=== PATIENT | male | born 1975 | race Caucasian/White ===

== ENCOUNTER → 2018-12-06 | Outpatient (REF) | payer OTHER | LOC: M LAB REF 11:01 | PROVIDERS: ATTEND Physician Assistant | DX: J02.9 Acute pharyngitis, unspecified (principal) ==

== ENCOUNTER → 2022-06-28 | Outpatient (CLI) | payer OTHER ==
[2022-06-28 12:13] LABS: HEMATOCRIT 45.9 % (42.0-52.0); HEMOGLOBIN 16.4 g/dl (13.5-17.5); MEAN CORPUSCULAR HEMOGLOBIN 33.7 pg (27.0-33.0); MEAN CORPUSCULAR HGB CONC 35.7 g/dl (32.0-36.5); MEAN CORPUSCULAR VOLUME 94.3 fl (80.0-96.0); PLATELET COUNT, AUTOMATED 222 10^3/uL (150-450); RED BLOOD COUNT 4.87 10^6/uL (4.30-6.10); WHITE BLOOD COUNT 4.8 10^3/uL (4.0-10.0)
[2022-06-28 12:38] LABS: HEMOGLOBIN A1c 5.6 % (4.0-6.0)
[2022-06-28 12:52] LABS: ALBUMIN 4.2 G/DL (3.2-5.2); ALKALINE PHOSPHATASE 56 U/L (46-116); ALT/SGPT 37 U/L (7.0-40); AST/SGOT 25 U/L (<34); BILIRUBIN,TOTAL 1.7 MG/DL (0.3-1.2); BLOOD UREA NITROGEN 24 MG/DL (9-23); CALCIUM LEVEL 9.5 MG/DL (8.5-10.1); CARBON DIOXIDE LEVEL 27 MMOL/L (20-31); CHLORIDE LEVEL 105 MMOL/L (98-107); CHOLESTEROL LEVEL 204 MG/DL (<200); CHOLESTEROL RISK RATIO 3.77 (<5); CREATININE FOR GFR 1.03 MG/DL (0.70-1.30); GLOMERULAR FILTRATION RATE > 60.0 (>60); GLUCOSE, FASTING 106 MG/DL (60-100); NON-HDL-C 150 MG/DL; POTASSIUM SERUM 4.2 MMOL/L (3.5-5.1); SODIUM LEVEL 140 MMOL/L (136-145); TESTOSTERONE 344 NG/DL (241-827); THYROID STIMULATING HORMONE 2.641 uIU/ML (0.55-4.78); TOTAL 25(OH) VITAMIN D 16.7 NG/ML (20.0-100.0)
[2022-06-28 21:31] LABS: LDL CHOLESTEROL 107.8 MG/DL (<100); TOTAL PROTEIN 7.2 G/DL (5.7-8.2); TRIGLYCERIDES LEVEL 211 MG/DL (<150)
== END ==
LOC: M RAD 10:59
PROVIDERS: ATTEND Family Medicine
DX: I10 Essential (primary) hypertension (principal)

== ENCOUNTER → 2023-06-26 | Outpatient (CLI) | payer OTHER ==
[2023-06-26 11:35] LABS: HEMATOCRIT 47.7 % (42.0-52.0); HEMOGLOBIN 16.5 g/dl (13.5-17.5); MEAN CORPUSCULAR HGB CONC 34.6 g/dl (32.0-36.5); MEAN CORPUSCULAR VOLUME 95.4 fl (80.0-96.0); PLATELET COUNT, AUTOMATED 239 10^3/uL (150-450); WHITE BLOOD COUNT 5.5 10^3/uL (4.0-10.0)
[2023-06-26 11:49] LABS: HEMOGLOBIN A1c 5.5 % (4.0-6.0)
[2023-06-26 12:10] LABS: PROSTATIC SPECIFIC AG MONITOR 1.09 NG/ML (< 4.00)
[2023-06-26 12:12] LABS: ALBUMIN 3.9 G/DL (3.2-5.2); ALKALINE PHOSPHATASE 52 U/L (46-116); ALT/SGPT 34 U/L (7.0-40); AST/SGOT 16 U/L (<34); BILIRUBIN,TOTAL 1.3 MG/DL (0.3-1.2); BLOOD UREA NITROGEN 20 MG/DL (9-23); CALCIUM LEVEL 9.1 MG/DL (8.5-10.1); CARBON DIOXIDE LEVEL 27 MMOL/L (20-31); CHLORIDE LEVEL 110 MMOL/L (98-107); CHOLESTEROL LEVEL 213 MG/DL (<200); CHOLESTEROL RISK RATIO 3.61 (<5); CREATININE FOR GFR 0.98 MG/DL (0.70-1.30); GLOMERULAR FILTRATION RATE > 60.0 (>56); GLUCOSE, FASTING 101 MG/DL (60-100); HDL CHOLESTEROL 58.9 MG/DL (>40); LDL CHOLESTEROL 120.7 MG/DL (<100); NON-HDL-C 154.1 MG/DL; POTASSIUM SERUM 4.3 MMOL/L (3.5-5.1); SODIUM LEVEL 140 MMOL/L (136-145); TOTAL PROTEIN 6.8 G/DL (5.7-8.2); TRIGLYCERIDES LEVEL 167 MG/DL (<150)
[2023-06-26 12:14] LABS: TESTOSTERONE 318 NG/DL (241-827); THYROID STIMULATING HORMONE 2.594 uIU/ML (0.55-4.78)
[2023-06-26 12:15] LABS: TOTAL 25(OH) VITAMIN D 23.3 NG/ML (20.0-100.0)
== END ==
LOC: M LAB 10:49
PROVIDERS: ATTEND Family Medicine
DX: I10 Essential (primary) hypertension (principal)

== ENCOUNTER 2024-06-25 06:39 | Day surgery (SDC) | payer OTHER ==
[~2024-06-25] VITALS: Ht 182.9 cm; Wt 106.0 kg
[~2024-06-25 06:39] MED LIST: VITA100093 PO; super beets
[2024-06-25] MEDS ORDERED: propofoL 200 MG/20 ML VIAL As Ordered ONE (08:08)
[2024-06-25 08:16] VITALS: TEMP 97.8
[2024-06-25 08:38] VITALS: BP 136/81; O2SAT 93
== END 2024-06-25 08:39 | disposition home or self-care (01) ==
LOC: M OPP 06:39
PROVIDERS: ATTEND Internal Medicine Gastroenterology
DX: Z12.11 Encounter for screening for malignant neoplasm of colon (principal); K63.5 Polyp of colon; Z79.899 Other long term (current) drug therapy

== ENCOUNTER 2024-07-02 22:47 | Emergency (ER) | payer OTHER ==
[~2024-07-02] VITALS: Ht 182.9 cm; Wt 105.2 kg
[2024-07-03 01:27] VITALS: BP 142/75; TEMP 98; O2SAT 99
== END 2024-07-03 01:28 | disposition home or self-care (01) ==
LOC: M ED 22:47
DX: S82.432A Displaced oblique fracture of shaft of left fibula, initial encounter for closed fracture (principal); Y92.410 Unspecified street and highway as the place of occurrence of the external cause; Y93.9 Activity, unspecified; Y99.9 Unspecified external cause status; W00.0XXA Fall on same level due to ice and snow, initial encounter; F10.10 Alcohol abuse, uncomplicated